=== PATIENT | male | born 1985 | race Caucasian/White ===

== ENCOUNTER 2018-06-02 22:18 | Emergency (ER) | payer SELFPAY ==
--- NOTE | 2018-06-03 00:05 | ED ---
Lower Extremity - HPI Summary HPI Summary: 32-year-old male presents with left hip pain and right calf pain since yesterday. He states he was walking in the dark and ran into a picnic table. He has bruising noted to his right calf and his left hip. He is walking with a limp. 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 He denies any numbness or tingling. He has been placing ice on the area and taking ibuprofen. He denies any weakness. - History of Current Complaint Chief Complaint: EDExtremityLower Stated Complaint: LT HIP PAIN Time Seen by Provider: 06/02/18 23:53 Pain Intensity: 8 - Allergies/Home Medications Allergies/Adverse Reactions: Allergies Allergy/AdvReac Type Severity Reaction Status Date / Time Bleach (Sodium Hypochlorite) Allergy Hives Verified 06/02/18 22:30 Penicillins Allergy Hives Verified 06/02/18 22:30 Bees Allergy Swelling Uncoded 06/02/18 22:30 PMH/Surg Hx/FS Hx/Imm Hx Endocrine/Hematology History: Denies: Hx Diabetes, Hx Thyroid Disease Cardiovascular History: Denies: Hx Hypertension, Hx Pacemaker/ICD Respiratory History: Reports: Hx Asthma - resolved Denies: Hx Chronic Obstructive Pulmonary Disease (COPD) GI History: Reports: Hx Gastroesophageal Reflux Disease Denies: Hx Ulcer History: Denies: Hx Renal Disease Musculoskeletal History: Reports: Other Musculoskeletal History - Left Shoulder Pain, neck pain from work accident 6 yrs ago Sensory History: Reports: Hx Contacts or Glasses - Reading Denies: Hx Hearing Aid Opthamlomology History: Reports: Hx Contacts or Glasses - Reading Neurological History: Reports: Hx Headaches Psychiatric History: Reports: Hx Attention Deficit Hyperactivity Disorder, Hx Bipolar Disorder Denies: Hx Panic Disorder - Surgical History Surgery Procedure, Year, and Place: right thumb ligament repair. cyst removal from left side of the back of the head. left eye socket repair. left inguinal hernia repair and hydrocele repair - Immunization History Date of Tetanus Vaccine: states is up to date Infectious Disease History: No Infectious Disease History: Denies: Hx Hepatitis, Hx Human Immunodeficiency Virus (HIV), Traveled Outside the [place] in Last 30 Days - Family History Known Family History: Positive: Unknown, Other - DDD, thyroid dz Negative: Cardiac Disease, Hypertension, Diabetes Family History: patient denies cardiovascular issues in family lineage - Social History Alcohol Use: Rare Hx Substance Use: No Substance Use Type: Reports: None Smoking Status (MU): Current Every Day Smoker Type: Cigarettes Amount Used/How Often: 2-3 cigs per day Review of Systems Negative: Fever Negative: Chest Pain Negative: Shortness Of Breath Positive: Myalgia - left hip and right lower leg pain Positive: Bruising All Other Systems Reviewed And Are Negative: Yes Physical Exam Triage Information Reviewed: Yes Vital Signs On Initial Exam: Initial Vitals Temp Pulse Resp BP Pulse Ox 99.6 F 82 19 147/82 100 06/02/18 22:26 06/02/18 22:26 06/02/18 22:26 06/02/18 22:26 06/02/18 22:26 Vital Signs Reviewed: Yes Appearance: Positive: Well-Appearing Skin: Positive: Warm, Dry Head/Face: Positive: Normal Head/Face Inspection Eyes: Positive: Normal, Conjunctiva Clear ENT: Positive: Pharynx normal Respiratory/Lung Sounds: Positive: Clear to Auscultation, Breath Sounds Present Cardiovascular: Positive: Normal, RRR Musculoskeletal: Positive: Strength/ROM Intact - left hip with pain, Other - ecchymosis to left hip and right calf, tenderness right calf, good pulses, sensation grossly intact Neurological: Positive: Normal Psychiatric: Positive: Normal Diagnostics - Vital Signs Vital Signs Temp Pulse Resp BP Pulse Ox 06/02/18 22:26 99.6 F 82 19 147/82 100 - Laboratory Lab Statement: Any lab studies that have been ordered have been reviewed, and results considered in the medical decision making process. - Radiology hip Xray Interpretation: No Acute Changes Radiology Interpretation Completed By: ED Physician lower leg Xray Interpretation: No Acute Changes Radiology Interpretation Completed By: ED Physician Lower Extremity Course/Dx - Course Course Of Treatment: 32-year-old male presents with left hip pain and right calf pain since yesterday. He states he was walking in the dark and ran into a picnic table. He has bruising noted to his right calf and his left hip. He is walking with a limp. 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 He denies any numbness or tingling. He has been placing ice on the area and taking ibuprofen. He denies any weakness. On exam ecchymosis of left hip and right calf. Able to flex and extend hip pain but difficult with external rotation of left hip as causes extreme pain. Full range of motion of right lower leg. Neurovascularly intact. X-rays read by me as normal. will treat with RICE. patient understand and agrees with plan. - Diagnoses Differential Diagnosis/HQI/PQRI: Positive: Fracture (Closed), Sprain, Strain Provider Diagnoses: Contusion of left hip, Right leg pain Discharge - Sign-Out/Discharge Documenting (check all that apply): Discharge/Admit/Transfer - Discharge Plan Condition: Good Disposition: HOME Patient Education Materials: Hip Contusion (ED) Referrals: José Pastor MD [Primary Care Provider] - Additional Instructions: Take Tylenol or ibuprofen every 6 hours as needed for pain Apply ice, rest, elevate Follow up with primary care physician within 5 days Return to ED if develop any new or worsening symptoms - Billing Disposition and Condition Condition: GOOD Disposition: Home
[2018-06-03 00:55] VITALS: BP 118/69
--- NOTE | 2018-06-03 07:21 | RAD ---
INDICATION: Left hip pain COMPARISON: None TECHNIQUE: An AP view of the pelvis and AP views of the hip in neutral and abducted position were obtained FINDINGS: Bones: There are no acute bony findings. Joint spaces: The hips articulate normally. The joint spaces are preserved. SI joints/symphysis: The SI joints and symphysis are intact. Other: None IMPRESSION: NEGATIVE EXAMINATION.
--- NOTE | 2018-06-03 07:22 | RAD ---
INDICATION: Left lower extremity pain COMPARISON: None TECHNIQUE: AP and lateral views were obtained. FINDINGS: The bony structures, joint spaces, and soft tissues are normal for age. IMPRESSION: NEGATIVE EXAMINATION.
--- NOTE | 2018-06-03 07:23 | RAD ---
INDICATION: Left femoral pain COMPARISON: None TECHNIQUE: AP and lateral views were obtained. FINDINGS: The bony structures, joint spaces, and soft tissues are normal for age. IMPRESSION: NEGATIVE EXAMINATION.
== END 2018-06-03 00:54 | disposition home or self-care (01) ==
LOC: ED 22:18
DX: S70.02XA Contusion of left hip, initial encounter (principal); M25.552 Pain in left hip; Z88.0 Allergy status to penicillin; Z88.8 Allergy status to other drugs, medicaments and biological substances; F17.210 Nicotine dependence, cigarettes, uncomplicated; M79.604 Pain in right leg; W22.8XXA Striking against or struck by other objects, initial encounter; Y92.9 Unspecified place or not applicable
CPT/HCPCS: 99282